=== PATIENT | female | born 1980 | race Caucasian/White ===

== ENCOUNTER 2018-09-08 13:51 | Outpatient (CLI) | payer OTHER ==
--- NOTE | 2018-09-08 15:19 | RAD ---
LUMBAR SPINE TWO VIEWS: HISTORY: Unspecified low back pain. COMPARISON: None. FINDINGS: Five lumbar type vertebral bodies. Vertebral body height is maintained. No fracture. There is 2.5 of retrolisthesis of L3 upon L4. Disk space heights are preserved with the exception of L5-S1, where there is mild loss of disk space height. IMPRESSION: 1. Degenerative changes of the lumbar spine, as described above. 2. Grade 1 retrolisthesis of L3 upon L4. POS: OFF
== END 2018-09-08 13:52 | disposition home or self-care (01) ==
LOC: SCSRAD 13:51
PROVIDERS: ATTEND Internal Medicine Rheumatology
DX: M54.5 Low back pain (principal); M47.816 Spondylosis without myelopathy or radiculopathy, lumbar region; M43.16 Spondylolisthesis, lumbar region
CPT/HCPCS: 72100

== ENCOUNTER 2018-09-21 15:35 | Outpatient (CLI) | payer OTHER ==
--- NOTE | 2018-09-21 16:41 | RAD ---
CERVICAL SPINE RADIOGRAPHS WITH LATERAL AND OBLIQUE PROJECTIONS: COMPARISON: Prior study from [facility] from 10/25/2017. FINDINGS: Again seen is an ACDF spanning C6-C7. There is advanced segment degeneration at C5-C6, which has mil dly progressed from the prior exam. There is straightening of the normal cervical lordosis. No abno rmal translational motion is evident. No osseous neural foraminal narrowing is present. The lateral masses are symmetric. The lung apices are clear. IMPRESSION: 1. Postoperative cervical spine. 2. Some straightening of the cervical lordosis. 3. No abnormal translational motion demonstrated. 4. Mild progression in the adjacent segment disk degeneration at C5-C6. POS: CET
== END 2018-09-21 15:36 | disposition home or self-care (01) ==
LOC: SCSRAD 15:35
PROVIDERS: ATTEND Neurological Surgery
DX: M54.2 Cervicalgia (principal); M50.322 Other cervical disc degeneration at C5-C6 level; Z98.890 Other specified postprocedural states
CPT/HCPCS: 72052